=== PATIENT | male | born 1965 | race Caucasian/White ===

== ENCOUNTER 2018-05-24 02:15 | Emergency (ER) | payer SELFPAY ==
[2018-05-24] MEDS ORDERED: Ketorolac Tromethamine 30 MG/ML VIAL ONE (03:20)
--- NOTE | 2018-05-24 08:05 | RAD ---
RADIOGRAPH LEFT FOREARM 2 VIEWS: Date: 05/24/18 HISTORY: 53-year-old male with traumatic forearm pain due to fall. FINDINGS: There is no fracture or any other osseous abnormality involving the radius and ulna. IMPRESSION: Normal. POS: [facility]
--- NOTE | 2018-05-24 08:09 | RAD ---
RADIOGRAPH LEFT ELBOW 4 VIEWS: Date: 05/24/18 HISTORY: 53-year-old male with acute, traumatic left elbow pain after fall. FINDINGS: There is no dislocation. No displaced fracture is identified. On the AP view, there is a vertically o riented linear lucency at the lateral periphery of the head of the radius. The lateral view is subopt imally positioned such that it is difficult to evaluate for displaced fat pad. IMPRESSION: 1. Linear lucency at the lateral edge of the radial head, visible on only one of the views. This cou ld either represent a trabecular marking or a nondisplaced fracture. 2. Recommend follow-up radiograph of the elbow in 5-10 days. POS: [facility]
== END 2018-05-24 03:52 | disposition home or self-care (01) ==
LOC: ERS 02:15
DX: S50.02XA Contusion of left elbow, initial encounter (principal); J45.909 Unspecified asthma, uncomplicated; Z79.51 Long term (current) use of inhaled steroids; W10.9XXA Fall (on) (from) unspecified stairs and steps, initial encounter
CPT/HCPCS: 29105; 96372; J1885

== ENCOUNTER 2019-07-08 14:23 | Emergency (ER) | payer SELFPAY ==
[2019-07-08] MEDS ORDERED: Albuterol Sulfate 2.5 mg/0.5 ml Neb ONE ×2 (14:31→14:34)
[2019-07-08] MEDS ORDERED: Albuterol Sulfate 2.5 mg/3 ml Neb ONE ×2 (14:31)
[2019-07-08] MEDS ORDERED: methylPREDNISolone Sod Succ/PF 125 MG/2 ML VIAL ONE (14:43)
--- NOTE | 2019-07-08 14:59 | RAD ---
EXAM: Single view of the chest HISTORY: Dyspnea COMPARISON: 04/18/2013 FINDINGS: Single view of the chest shows a normal sized cardiomediastinal silhouette. There is no mirna dence of consolidation, mass, or pleural effusion. The bones are unremarkable. IMPRESSION: No evidence of acute cardiopulmonary disease
[2019-07-08 15:09] LABS: #Basophils 0.1 thou/uL (0.0-0.2); #Eosinphils 0.6 thou/uL (0.0-0.7); #Lymphocytes 1.8 thou/uL (1.20-3.40); #Monocytes 0.5 thou/uL (0.11-0.59); #Neutrophils 3.6 thou/uL (1.40-6.50); %Basophils 1.3 % (0.0-1.0); %Eosinophils 8.5 % (0.0-10.0); %Lymphocytes 27.8 % (21.0-51.0); %Monocytes 7.5 % (0.0-10.0); %Neutrophils 54.9 % (42.0-75.0); Hemoglobin 15.8 g/dL (14.0-18.0); Mean Corpuscular HGB CONC 32.2 g/dL (32.0-36.0); Mean Corpuscular Hemoglobin 30.6 pg (27.0-31.0); Mean Platelet Volume 7.9 fL (7.4-10.4); Platelet Count 258 thou/uL (130-400); RBC Distribution Width 12.1 % (11.5-14.5); Red Blood Cell (RBC) Count 5.17 mill/uL (4.70-6.10); White Blood Cell (WBC) Count 6.6 thou/uL (4.8-10.8)
[2019-07-08] MEDS ORDERED: Magnesium 2 GM/50 ML BAG (IN WATER) ONE (15:14)
[2019-07-08 15:31] LABS: ALT (SGPT) 18 U/L (8-55); AST (SGOT) 18 U/L (5-34); Albumin 4.2 g/dL (3.5-5.0); Alkaline Phosphatase 70 U/L (40-110); Anion Gap 11 mmol/L (10-20); BUN (Urea Nitrogen) 23 mg/dL (8.4-25.7); Bilirubin, Total 0.7 mg/dL (0.2-1.2); Calc. Creatinine Clearance 0 mL/min (70-130); Carbon Dioxide 25 mmol/L (22-29); Chloride 107 mmol/L (98-107); Estimated GFR-MDRD 67; Globulin 2.9 g/dL (2.4-3.5); Glucose 85 mg/dL (70-105); Potassium 3.9 mmol/L (3.5-5.1); Protein, Total 7.1 g/dL (6.0-8.3); Sodium 139 mmol/L (136-145)
== END 2019-07-08 16:55 | disposition home or self-care (01) ==
LOC: ERS 14:23
DX: J45.901 Unspecified asthma with (acute) exacerbation (principal)
CPT/HCPCS: 71045; 80053; 84484; 85025; 94640; 94644; 96365; 96375; J2930; J3475; J7611; J7620

== ENCOUNTER 2020-07-06 03:36 | Inpatient (IN) | payer SELFPAY ==
[2020-07-06] MEDS ORDERED: Fentanyl 100 MCG/2 ML VIAL ONE (03:48)
[2020-07-06] MEDS ORDERED: Midazolam HCl 5 mg/ml Vial ONE (03:48)
[2020-07-06] MEDS ORDERED: Albuterol Sulfate 2.5 mg/3 ml Neb ONE ×4 (03:51→05:13)
[2020-07-06] MEDS ORDERED: Fentanyl BOLUS 250 ML IVPB PRN (04:00)
[2020-07-06] MEDS ORDERED: Norepinephrine 8 MG/0.9% NS 250 ML ONE (04:02)
[2020-07-06 04:26] LABS: #Basophils 0.1 thou/uL (0.0-0.2); #Eosinphils 0.2 thou/uL (0.0-0.7); #Lymphocytes 4.3 thou/uL (1.20-3.40); #Monocytes 0.6 thou/uL (0.11-0.59); #Neutrophils 3.4 thou/uL (1.40-6.50); %Basophils 1.7 % (0.0-1.0); %Eosinophils 2.7 % (0.0-10.0); %Lymphocytes 49.7 % (21.0-51.0); %Monocytes 6.4 % (0.0-10.0); %Neutrophils 39.6 % (42.0-75.0); Hemoglobin 13.6 g/dL (14.0-18.0); Mean Corpuscular Hemoglobin 32.8 pg (27.0-31.0); Mean Platelet Volume 7.8 fL (7.4-10.4); Platelet Count 209 thou/uL (130-400); RBC Distribution Width 11.8 % (11.5-14.5); Red Blood Cell (RBC) Count 4.15 mill/uL (4.70-6.10); White Blood Cell (WBC) Count 8.6 thou/uL (4.8-10.8)
[2020-07-06] MEDS ORDERED: methylPREDNISolone Sod Succ/PF 125 MG/2 ML VIAL ONE (04:26)
[2020-07-06] MEDS ORDERED: Magnesium 2 GM/50 ML BAG (IN WATER) ONE (04:26)
[2020-07-06 04:35] LABS: Anion Gap 25 mmol/L (10-20); BUN (Urea Nitrogen) 22 mg/dL (8.4-25.7); CK (CPK) 435 U/L (30-200); Calc. Creatinine Clearance 0 mL/min (70-130); Carbon Dioxide 20 mmol/L (22-29); Chloride 103 mmol/L (98-107); Glucose 309 mg/dL (70-105); Potassium 3.8 mmol/L (3.5-5.1); Sodium 144 mmol/L (136-145)
[2020-07-06] MEDS ORDERED: Vancomycin 1 GM/200 ML BAG ONE (04:41)
[2020-07-06 04:45] LABS: Bacteria/HPF None Seen HPF (None Seen); Bilirubin Negative (Negative); Blood, Urine Trace (Negative); Clarity Turbid (Clear); Glucose, Urine (Dipstick) Normal (Negative); Ketone, Urine Negative (Negative); Leukocyte Negative Leu/uL (Negative); Mucous/LPF 1+ LPF (<2+); Nitrite Negative (Negative); Protein, Urine (Dipstick) 50 mg/dL (Neg-Trace); Specific Gravity, Urine 1.016 (1.002-1.036); Sperm/HPF 4+ HPF (None Seen); Squamous Epithelial None Seen HPF (0-3); Urobilinogen Normal mg/dL (Less than 2); WBC/HPF None Seen HPF (0-3); pH, Urine 6.5 (5.0-9.0)
[2020-07-06 04:57] LABS: Amphetamine Detected (NotDetected); Barbiturates Screen Not Detected (NotDetected); Benzodiazepine Screen Not Detected (NotDetected); Cocaine Metabolite Screen Not Detected (NotDetected); Medtox Control Line Valid? VALID (VALID); Medtox Reader # READER 4; Methadone Not Detected (NotDetected); Methamphetamine Detected (NotDetected); Opiate Screen Not Detected (NotDetected); Oxycodone Screen Not Detected (NotDetected); Phencyclidine (PCP) Not Detected (NotDetected); THC/Cannabinoid Screen Not Detected (NotDetected); Tricyclic Screen Not Detected (NotDetected)
--- NOTE | 2020-07-06 05:06 | PDOC.FPRHP ---
- History of Present Illness Chief Complaint: SOB and s/p CPR History of Present Illness: History provided by patient's spouse and ER attending. states that patient woke her up this AM c/o SOB, this was after he had done 5 albuterol treatments. She called EMS and when they arrived he was tripoding and then promptly became unresponsive. He was intubated in the field and was in PEA no CPR was started. He had 5 doses of epi and 1 dose of bicarb. Upon arrival to ER, CPR was continued, patient was found to be in v. fib and was shocked once and came back. Bilateral chest tubes were placed. CXR was obtained. Ancef and vancomycin were given for LA of 13.3. Initially he was hypertensive, however, he became hypotens peter and levophed was started. He apparently had purposeful movements of his arms. Per , patient's asthma has never been this severe. He was diagnosed with asthma when he was 42 y/o. No known exposures to COVID 19. ED Course: levophed ancef vancomycin fentanyl mg and steroids - Allergies/Adverse Reactions Allergies Allergy/AdvReac Type Severity Reaction Status Date / Time No Known Allergies Allergy Verified 06/09/13 13:57 - Home Medications Medication Instructions Recorded Confirmed Type Albuterol Sulfate [Ventolin HFA] 2 puff INH Q6HR PRN #0 inh 06/09/13 Rx No Known 06/09/13 06/09/13 History predniSONE [Robin] 5 mg PO ASDIR #21 tablet 06/09/13 Rx - History PMHx: -asthma PSHx: -none FHx: -unknown Social: -no TAD per - Review of Systems ROS unobtainable: due to endotracheal tube - Vital signs BP: 147/92, MAP: 110, Pulse: 127, Resp: 28, Temp: 95.4 (Criticore Temp), O2 sat: 98 on (Ventilator), Time: 07/06/2020 04:40. BP: 165/108, Pulse: 124, Resp: 24, O2 sat: 94 on (Ventilator), Time: 07/06/2020 04:46. - Physical Exam Constitutional: NAD HEENT: normocephalic and atraumatic, other (pupils reactive) Neck: supple, trachea midline Heart: no murmurs/rubs/gallops, other (tachycardic) Lungs: no rales/rhonchi, no wheezing Abdomen: soft, non-tender, bowel sounds present, no masses/distention Musculoskeletal: other (bl chest tube present) Skin: no rash/lesions Heme/Lymphatic: no unusual bruising or bleeding, no purpura, no petechia FMR H&P: Results - Labs Result Diagrams: 07/07/20 03:32 07/07/20 12:35 Lab results: WBC 8.6 thou/uL (4.8-10.8) 07/06/20 03:48 Hgb 13.6 g/dL (14.0-18.0) L 07/06/20 03:48 Hct 42.4 % (42.0-52.0) 07/06/20 03:48 MCV 102.0 fL (78.0-98.0) H 07/06/20 03:48 Plt Count 209 thou/uL (130-400) 07/06/20 03:48 Neutrophils % 39.6 % (42.0-75.0) L 07/06/20 03:48 Sodium 144 mmol/L (136-145) 07/06/20 03:48 Potassium 3.8 mmol/L (3.5-5.1) 07/06/20 03:48 Chloride 103 mmol/L (98-107) 07/06/20 03:48 Carbon Dioxide 20 mmol/L (22-29) L 07/06/20 03:48 BUN 22 mg/dL (8.4-25.7) 07/06/20 03:48 Creatinine 1.66 mg/dL (0.7-1.3) H 07/06/20 03:48 Glucose 309 mg/dL (70-105) H 07/06/20 03:48 Lactic Acid 13.3 mmol/L (0.5-2.2) H* 07/06/20 03:48 Calcium 8.0 mg/dL (7.8-10.44) 07/06/20 03:48 Creatine Kinase 435 U/L (30-200) H 07/06/20 03:48 Urine Ketones Negative mg/dL (Negative) 07/06/20 04:30 Urine Blood Trace (Negative) A 07/06/20 04:30 Urine Nitrite Negative (Negative) 07/06/20 04:30 Ur Leukocyte Esterase Negative Sherri/uL (Negative) 07/06/20 04:30 Urine RBC 7-10 HPF (0-3) A 07/06/20 04:30 Urine WBC None Seen HPF (0-3) 07/06/20 04:30 Ur Squamous Epith Cells None Seen HPF (0-3) 07/06/20 04:30 Urine Bacteria None Seen HPF (None Seen) 07/06/20 04:30 - Radiology Interpretation Chest x-ray Status: image reviewed by me, pending (pending report: no infiltrate seen) FMR H&P: A/P - Plan Acute Hypoxic Respiratory Failure 2/2 Asthma Exacerbation -s/p CPR for total of 25 mins, 5 doses of epi and 1 of bicarb -currently sedated and intubated, PS 100, PEEP 5, TV 400 -ABG showed pH 7.04, pCO2 79 -trop 0.013, CK 435 -asthma exacerbation txt with steroids and nebs -cooling protocol as needed -procal ordered, trend LA, do not see need to continue with abx for now -daily CXRs -CT chest ordered pending -pulmonary consulted -neg COVID and flu HENRIQUE -Telephone Service Representative 1.66 -LR 125ml/HR Lactic acidosis -pH 7.04, CO2 79 -s/p 1 dose bicarb -LA 13.3, will trend as above Polysubstance abuse -UDS positive for meth and amphetamines CODE: FULL VTE: Lovenox PCP: CC : Carmen Dispo: admitted to CCU. on ventilator. not currently on levophed. cooling protocol to be initiated as needed. FMR H&P: Upper Level - Plan Date/Time: 07/06/20 [address] p[address]3, have evaluated this patient and agree with findings/plan as outlined by events intern resident. Pertinent changes/additions are listed here. 55-year-old male with past medical history of asthma presents via EMS in active code. stated that he woke her up after 5 nebulizations of albuterol stating he cannot breathe and EMS was called. He became apneic and went into ventricular tachycardia so chest compressions were started. He had a total of 5 mg of epinephrine and 1 amp bicarb and on arrival to the emergency room he was in ventricular fibrillation. On defibrillation he achieved ROSC. He had bilateral chest tubes putting and a left subclavian central catheter. On presentation systolic blood pressure was in the 190s which decreased to 45 and Levophed was started, this Levophed was quickly weaned however On exam patient is in sinus tachycardia and blood pressures are stable off of Levophed, he is sedated letter fentanyl, bilateral chest tubes in place, diffuse bilateral crackles on inspiration, heart is tachycardiac with no murmur Assessment and plan Ventricular tachycardia and ventricular fibrillation status post ROSC Patient has weaned Levophed quickly and appears to be hemodynamically stable at this time. He is currently hypothermic but will consider cooling protocol if he is still stable after transfer to the floor. Hypoxic respiratory failure secondary to asthma exacerbation Patient is currently intubated, will start duonebs and steroids, consult pulmonology. Fentanyl for sedation Bilateral Chest Tubes stable in place, will get daily CXR. f/u pulm recs HENRIQUE vs. CKD likely HENRIQUE 2/2 cardiac arrest, will continue to monitor hypothermia Likely 2/2 cardiac arrest, pt would be candidate for hypothermia protocol so will monitor temps. Bear hugger as needed. Lactic acidosis LA 13.5 on admission, likely 2/2 cardiac arrest, will give fluids and trend Methamphetamine abuse denies use, UDS positive hematuria unknown etiology, will monitor kidney function and consider repeat CODE: FULL Access: L subclavian IVF: LR 125/hr DVT Ppx: lovenox PCP: JORGE dispo: inpt, expect > 2 midnights Addendum - Attending - Attending Attestation Date/Time: 07/07/201955 I personally evaluated the patient and discussed the management with Dr. Cosby at time of admission. I agree with the History, Examination, Assessment and Plan documented above with any addition or exceptions noted below.
[2020-07-06 05:12] LABS: Actual Bicarbonate (HCO3a) 20.7 mEq/L (22-28); Analyzer IN Cardio ER; Base Excess (BEa) -11.6 mEq/L (-2.0 to +3.0); Calcium, Ionized (arterial) 1.13 mmol/L (1.12-1.30); Carboxyhemoglobin (COHb) 0.1 gm% (0.0-3.0); Hemoglobin (Hb) 15.3 g/dL (14.0-18.0); O2 Tension (PaO2), arterial 85.1 mmHg (80.0-100.0); Potassium - ABG Lab 4.14 mmol/L (3.70-5.30)
[2020-07-06 05:15] LABS: pH, Arterial 7.04 (7.35-7.45)
[2020-07-06 05:16] LABS: Puncture Site LBA
[2020-07-06 05:23] LABS: Acetaminophen Less than 6.0 mcg/mL (10.0-30.0); Alcohol Less than 10 mg/dL (Less than 10); Salicylate Less than 8.0 mg/dL (15.0-30.0)
[2020-07-06] MEDS ORDERED: Propofol 1,000 MG/100 ML VIAL IV ONE (05:24)
[2020-07-06 05:29] LABS: SARS-CoV-2 NAA Rapid Test Not Detected (NotDetected)
[2020-07-06] MEDS ORDERED: fentaNYL Citrate/PF 2,000 MCG in Sodium Chloride 0.9% 60 ML IV PRN (05:46)
[2020-07-06] MEDS ORDERED: Ventilator Sedation Protocol 1 EACH FS ONE (05:46)
[2020-07-06] MEDS ORDERED: DISCONTINUE PREVIOUS NARCOTIC PAIN MEDICATIONS AND BENZODIAZEPINES FS SCH (06:15)
[2020-07-06] MEDS ORDERED: Morphine 2 MG/ML VIAL SLOW IVP PRN (06:15)
[2020-07-06] MEDS ORDERED: Propofol BOLUS 1,000 MG/100 ML VIAL IV PRN (06:15)
[2020-07-06] MEDS ORDERED: Bacteriostatic Water 30 ML VIAL FS PRN (06:15)
[2020-07-06] MEDS ORDERED: Ipratropium Bromide 2.5 ml Neb NEB SCH (06:30)
[2020-07-06 07:16] LABS: Lactic Acid 2.5 mmol/L (0.5-2.2)
[2020-07-06] MEDS: Lorazepam 2 MG/ML VIAL SLOW IVP PRN ×6 (07:33→17:34)
[2020-07-06] MEDS ORDERED: DO NOT USE PRE-EXISTING LYTE PROTOCOL FS SCH (08:00)
[2020-07-06] MEDS ORDERED: ALL FLUIDS SHOULD BE DEXTROSE FREE IF POSSIBLE FS SCH (08:00)
[2020-07-06] MEDS ORDERED: Vecuronium 10 MG VIAL ONE (08:00)
[2020-07-06] MEDS ORDERED: Midazolam HCl 5 mg/5 ml Vial SLOW IVP SCH (08:00)
--- NOTE | 2020-07-06 08:11 | RAD ---
CHEST 1 VIEW: INDICATION: History of CODE-3 alert, CPR in progress status post intubation. Woke up with difficulty breathing. COMPARISON: Prior exam dated 07/08/2019. FINDINGS: Costophrenic angles are excluded. There are bilateral chest tubes. There is a right-sided percutane ous thoracostomy dart. The patient is intubated with the ET tube at the thoracic inlet. Gastric cat heter projects toward the left hemidiaphragm and beyond the field of view. The visualized lungs are clear. No definite pneumothorax is evident. No acute osseous abnormality is noted. IMPRESSION: 1. No definite acute abnormality evident. 2. Intubation, gastric catheter placement, bilateral thoracostomy tube placements, and right-sided t horacostomy dart. POS:
--- NOTE | 2020-07-06 08:25 | RAD ---
Portable frontal chest radiograph: 07/06/2020 COMPARISON: 07/06/2020 HISTORY: Intubated patient, pneumothorax FINDINGS: Endotracheal tube, nasogastric tube, and left-sided vascular catheter in place. There is madrid bcutaneous emphysema within the chest wall bilaterally, right greater than left, increased in volume when compared to the prior chest radiograph. Bilateral chest tubes are present. There is a pneumothorax on the right with a lateral right upper lo be component measuring 1.5 cm in transverse dimension and an apical component measuring approximately 3.1 cm in craniocaudal dimension. No definite left-sided pneumothorax is seen although a small left pneumothorax is difficult to exclude on the basis of technique. Heart and mediastinal contours are stable as are the osseous structures. IMPRESSION: Lines and tubes as detailed above. Right pneumothorax and bilateral chest wall subcutaneo us emphysema. Of note, when compared to CT angiogram of the chest performed 07/06/2020 at 6:15 AM, the right-sided p neumothorax appears stable, the left pneumothorax is not discretely visualized, and the subcutaneous gas within the chest wall appears similar bilaterally.
[2020-07-06] MEDS: Lactated Ringer's 1,000 ML IV SCH ×3 (08:26→23:22)
[2020-07-06] MEDS: Enoxaparin Sodium 40 MG/0.4 ML SYRINGE SC SCH (08:34)
[2020-07-06 08:35] LABS: PTT 29.7 sec (22.9-36.1); Prothrombin Time 13.3 sec (12.0-14.7)
[2020-07-06] MEDS: methylPREDNISolone Sod Succ 40 MG VIAL IVP SCH ×3 (08:35→23:22)
[2020-07-06 08:43] LABS: Hemoglobin 16.5 g/dL (14.0-18.0); Lactic Acid 3.5 mmol/L (0.5-2.2); Mean Corpuscular HGB CONC 32.1 g/dL (32.0-36.0); Mean Corpuscular Hemoglobin 30.9 pg (27.0-31.0); Mean Corpuscular Volume 96.1 fL (78.0-98.0); Mean Platelet Volume 7.4 fL (7.4-10.4); Platelet Count 356 thou/uL (130-400); RBC Distribution Width 11.8 % (11.5-14.5); Red Blood Cell (RBC) Count 5.33 mill/uL (4.70-6.10); White Blood Cell (WBC) Count 22.3 thou/uL (4.8-10.8)
--- NOTE | 2020-07-06 08:43 | RAD ---
CHEST 1 VIEW: INDICATION: History of central line placement. COMPARISON: Prior exam dated 07/06/2020 at 4:03 a.m. FINDINGS/IMPRESSION: The prior right chest port has been removed. Thoracostomy tubes are unchanged. There is a new left subclavian central venous catheter. No pneumothorax is evident. Pacer pads overlie the chest wall. Heart size is normal. The ET tube is unchanged. Gastric catheter projects below the left hemidiaph ragm and beyond the field of view. Costophrenic angles are excluded. POS: [facility]
[2020-07-06] MEDS: Propofol 1,000 MG/100 ML VIAL IV PRN ×4 (08:47→23:21)
[2020-07-06 08:48] LABS: Anion Gap 18 mmol/L (10-20); BUN (Urea Nitrogen) 20 mg/dL (8.4-25.7); Calc. Creatinine Clearance 0 mL/min (70-130); Calcium 8.3 mg/dL (7.8-10.44); Carbon Dioxide 23 mmol/L (22-29); Chloride 101 mmol/L (98-107); Glucose 222 mg/dL (70-105); Magnesium 2.2 mg/dL (1.6-2.6); Phosphorus 2.2 mg/dL (2.3-4.7); Sodium 139 mmol/L (136-145)
[2020-07-06] MEDS ORDERED: methylPREDNISolone Sod Succ 40 MG VIAL IVP SCH (09:00)
[2020-07-06 09:05] LABS: Actual Bicarbonate (HCO3a) 24.1 mEq/L (22-28); Base Excess (BEa) -2.1 mEq/L (-2.0 to +3.0); CO2 Tension 46.3 mmHg (35.0-45.0); Calcium, Ionized (arterial) 1.09 mmol/L (1.12-1.30); Carboxyhemoglobin (COHb) 0.4 gm% (0.0-3.0); Hemoglobin (Hb) 17.4 g/dL (14.0-18.0); O2 Tension (PaO2), arterial 108.2 mmHg (80.0-100.0); Potassium - ABG Lab 2.91 mmol/L (3.70-5.30); pH, Arterial 7.34 (7.35-7.45)
[2020-07-06 09:06] LABS: ALV-art Gradient 190.425 mmHg (0-20); Puncture Site LRA
[2020-07-06 09:07] LABS: Troponin I 0.644 ng/mL (< 0.028)
[2020-07-06 09:28] LABS: Band 11 % (5-11); Eosinophils 1 % (0-10); Lymphocytes 8 % (21-51); MDiff Complete? YES; Monocytes 5 % (0-10); Neutrophil 75 % (42-75); Platelet Morphology Comment Appears Adequate; RBC Morphology Normal
--- NOTE | 2020-07-06 09:35 | CT ---
CTA OF THE CHEST UTILIZING IV CONTRAST AND PE PROTOCL AND REFORMATTED IMAGING: INDICATION: History of CPR in progress with asthma exacerbation. COMPARISON: No CT comparisons are available. FINDINGS: No central or segmental pulmonary embolus is evident. There is moderate right and small to moderate left-sided pneumothoraces. There are bilateral thoracostomy tubes. The patient is intubated with ga stric catheter placement. There is extensive subcutaneous emphysema. There are patchy airspace opaci ties within both upper lobes as well as within the medial right middle lobe which is nonspecific. Th e opacities are suspicious for focal areas of contusion. They could also be related to aspiration if the patient was in a Trendelenburg-type position upon intubation. No definite acute osseous abnorma lity is evident. There is mild scattered degenerative change. Visualized upper abdomen demonstrates a calcified granuloma within the spleen. There is some wall thickening and fluid surrounding the ga llbladder which is nonspecific. There is a nonobstructing calculus within the inferior pole of the r ight kidney measuring approximately 3 mm. A small hypodensity is seen within the left mid kidney marietta picious for a small cyst. There is a left subclavian central venous catheter in place. IMPRESSION: 1. Moderate right and small to moderate left pneumothorax with bilateral thoracostomy tubes. There is extensive subcutaneous emphysema. 2. No central or segmental pulmonary embolus. 3. Opacities within the upper lobes may reflect contusions from attempts for chest wall darting or p ossibly from thoracostomy placement. They also could be related to aspiration pneumonitis from intub ation if the patient is within a Trendelenburg position. 4. Nonspecific gallbladder wall thickening and pericholecystic fluid. Right upper quadrant ultrasou nd is recommended for additional evaluation. 5. Left nephrolithiasis and small suspected left renal cyst. POS: [facility]
[2020-07-06] MEDS: Vecuronium 10 MG VIAL IV PRN ×8 (09:52→23:22)
[2020-07-06] MEDS: cefTRIAXone\\ROCEPHIN 1 GM in Sodium Chloride 0.9% 100 ML IVPB SCH (09:59)
[2020-07-06] MEDS ORDERED: Iopamidol-370 76% 500 ML 1 ML ONE (10:23)
[2020-07-06] MEDS ORDERED: Sodium Chloride 0.9% (PF) 10 ML VIAL FS PRN (10:45)
--- NOTE | 2020-07-06 11:43 | CON ---
DATE OF CONSULTATION: 07/06/2020 HISTORY OF PRESENT ILLNESS: Maryann is a 55-year-old gentleman, intubated in the ICU, on the vent with 2 bilateral chest tubes. History is obtained from his , who is at the bedside. He has longstanding history of asthma, nonsmoker, but having issues with difficulty breathing for several days this morning at 03:30 a.m. in the morning, developed another attack, unresponsive to usual medication. EMS was called in. Apparently, he had no pulse, is apneic. #8 tube was placed in. He received 5 doses of epi and received an amp of bicarb, came to the ER here in cardiac arrest. CPR was done. Somewhere down the line he had 2 chest tubes placed in. I have reviewed several of his x-rays including a CT of the chest. I did not see any pneumothorax. says he is very healthy. He is a senior landscape architect. PAST MEDICAL HISTORY: No history of diabetes, hypertension. Chronic asthma. PREVIOUS SURGERIES: None. CHRONIC MEDICATION: Albuterol inhaler. REVIEW OF SYSTEMS: Otherwise, unobtainable. Because of his CPR, he is on a cooling protocol at this stage. PHYSICAL EXAMINATION: VITAL SIGNS: Temperature 97, blood pressure 180/120, pulse 102, sats 100%. CHEST: No wheezing. No crackles. CARDIAC: Normal S1, S2. No gallops. ABDOMEN: No masses. DIAGNOSTIC DATA: X-ray is clear. PO2 is 85, pCO2 , pH 7.0, rate of 40-50%, 400 tidal volume, PEEP of 5. He had methamphetamines, amphetamines in his toxicology screen. Ellis test negative. Respiratory pneumonia, presumed bilateral pneumothorax, bilateral chest tubes, substance abuse. Because of prolonged CPR, he is on a cooling protocol for 24 hours, empiric antibiotics, steroids, supportive care. We will wean when stable. This is a 45-minute critical care time. Job ID: [id number]
[2020-07-06 12:28] LABS: #Basophils 0.1 thou/uL (0.0-0.2); #Lymphocytes 0.4 thou/uL (1.20-3.40); #Monocytes 0.8 thou/uL (0.11-0.59); #Neutrophils 22.5 thou/uL (1.40-6.50); %Basophils 0.5 % (0.0-1.0); %Eosinophils 0.1 % (0.0-10.0); %Lymphocytes 1.8 % (21.0-51.0); %Monocytes 3.3 % (0.0-10.0); %Neutrophils 94.3 % (42.0-75.0); Hemoglobin 16.6 g/dL (14.0-18.0); Mean Corpuscular HGB CONC 32.4 g/dL (32.0-36.0); Mean Corpuscular Hemoglobin 31.6 pg (27.0-31.0); Mean Corpuscular Volume 97.3 fL (78.0-98.0); Mean Platelet Volume 7.3 fL (7.4-10.4); Platelet Count 316 thou/uL (130-400); RBC Distribution Width 11.8 % (11.5-14.5); Red Blood Cell (RBC) Count 5.25 mill/uL (4.70-6.10); White Blood Cell (WBC) Count 23.9 thou/uL (4.8-10.8)
[2020-07-06 12:41] LABS: PTT 33.7 sec (22.9-36.1)
[2020-07-06 13:42] LABS: Anion Gap 21 mmol/L (10-20); Calc. Creatinine Clearance 76 mL/min (70-130); Calcium 8.4 mg/dL (7.8-10.44); Carbon Dioxide 18 mmol/L (22-29); Chloride 101 mmol/L (98-107); Magnesium 2.2 mg/dL (1.6-2.6); Potassium 3.3 mmol/L (3.5-5.1); Sodium 137 mmol/L (136-145)
[2020-07-06 13:45] LABS: CKMB 38.3 ng/mL (0-6.6)
[2020-07-06] MEDS ORDERED: Fentanyl CADD 100 ML ONE (13:45)
[2020-07-06] MEDS: Fentanyl CADD 100 ML IV SCH (13:58)
[2020-07-06 14:00] LABS: BUN (Urea Nitrogen) 22 mg/dL (8.4-25.7)
[2020-07-06 14:02] LABS: Glucose 212 mg/dL (70-105)
[2020-07-06 18:15] LABS: #Lymphocytes 0.5 thou/uL (1.20-3.40); #Monocytes 0.7 thou/uL (0.11-0.59); %Eosinophils 0.1 % (0.0-10.0); %Lymphocytes 2.6 % (21.0-51.0); %Monocytes 3.6 % (0.0-10.0); %Neutrophils 93.8 % (42.0-75.0); Hemoglobin 15.9 g/dL (14.0-18.0); Mean Corpuscular HGB CONC 32.9 g/dL (32.0-36.0); Mean Corpuscular Volume 97.1 fL (78.0-98.0); Mean Platelet Volume 7.4 fL (7.4-10.4); Platelet Count 265 thou/uL (130-400); RBC Distribution Width 11.8 % (11.5-14.5); Red Blood Cell (RBC) Count 4.97 mill/uL (4.70-6.10); White Blood Cell (WBC) Count 19.2 thou/uL (4.8-10.8)
[2020-07-06 18:21] LABS: PTT 33.8 sec (22.9-36.1); Prothrombin Time 13.2 sec (12.0-14.7)
[2020-07-06 18:47] LABS: Anion Gap 18 mmol/L (10-20); BUN (Urea Nitrogen) 22 mg/dL (8.4-25.7); Calc. Creatinine Clearance 80 mL/min (70-130); Calcium 8.6 mg/dL (7.8-10.44); Carbon Dioxide 23 mmol/L (22-29); Chloride 101 mmol/L (98-107); Glucose 167 mg/dL (70-105); Magnesium 1.9 mg/dL (1.6-2.6); Phosphorus 3.1 mg/dL (2.3-4.7); Potassium 3.2 mmol/L (3.5-5.1); Sodium 139 mmol/L (136-145)
[2020-07-06] MEDS: Budesonide 0.5 MG/2 ML NEB NEB SCH (18:50)
[2020-07-06 19:12] LABS: CKMB 38.1 ng/mL (0-6.6); Critical Call CKMB RESULT DECREASING
[2020-07-06] MEDS ORDERED: Potassium Chloride 40 MEQ in Premix Bag 1 BAG IVPB SCH (19:15)
[2020-07-06] MEDS: Pantoprazole 40 MG VIAL IVP SCH (20:14)
[2020-07-07 00:01] LABS: PTT 33.2 sec (22.9-36.1)
[2020-07-07] MEDS ORDERED: Fentanyl CADD 100 ML ONE (00:08)
[2020-07-07] MEDS: Fentanyl CADD 100 ML IV SCH (00:10)
[2020-07-07 00:12] LABS: Band 6 % (5-11); Hemoglobin 15.6 g/dL (14.0-18.0); Lymphocytes 9 % (21-51); MDiff Complete? YES; Mean Corpuscular HGB CONC 33.2 g/dL (32.0-36.0); Mean Corpuscular Hemoglobin 31.7 pg (27.0-31.0); Mean Corpuscular Volume 95.6 fL (78.0-98.0); Mean Platelet Volume 7.2 fL (7.4-10.4); Monocytes 13 % (0-10); Neutrophil 72 % (42-75); Platelet Count 267 thou/uL (130-400); Platelet Morphology Comment Appears Adequate; RBC Distribution Width 11.9 % (11.5-14.5); RBC Morphology Normal; White Blood Cell (WBC) Count 24.2 thou/uL (4.8-10.8)
[2020-07-07 00:17] LABS: Anion Gap 18 mmol/L (10-20); BUN (Urea Nitrogen) 22 mg/dL (8.4-25.7); Calc. Creatinine Clearance 96 mL/min (70-130); Calcium 8.4 mg/dL (7.8-10.44); Carbon Dioxide 24 mmol/L (22-29); Chloride 101 mmol/L (98-107); Glucose 150 mg/dL (70-105); Magnesium 1.8 mg/dL (1.6-2.6); Phosphorus 4.1 mg/dL (2.3-4.7); Potassium 3.7 mmol/L (3.5-5.1); Sodium 139 mmol/L (136-145)
[2020-07-07 00:19] LABS: Critical Call Chem Troponin I RESULT DECREASING
[2020-07-07 00:39] LABS: CKMB 41.9 ng/mL (0-6.6)
[2020-07-07] MEDS: Vecuronium 10 MG VIAL IV PRN ×2 (01:50→03:46)
[2020-07-07 04:29] LABS: ALT (SGPT) 802 U/L (8-55); AST (SGOT) 418 U/L (5-34); Albumin 3.6 g/dL (3.5-5.0); Alkaline Phosphatase 71 U/L (40-110); Anion Gap 14 mmol/L (10-20); BUN (Urea Nitrogen) 28 mg/dL (8.4-25.7); Bilirubin, Total 0.4 mg/dL (0.2-1.2); Calc. Creatinine Clearance 120 mL/min (70-130); Calcium 8.7 mg/dL (7.8-10.44); Carbon Dioxide 27 mmol/L (22-29); Chloride 101 mmol/L (98-107); Globulin 2.9 g/dL (2.4-3.5); Glucose 142 mg/dL (70-105); Potassium 3.8 mmol/L (3.5-5.1); Protein, Total 6.5 g/dL (6.0-8.3); Sodium 138 mmol/L (136-145)
[2020-07-07 04:40] LABS: Band 11 % (5-11); Hemoglobin 15.2 g/dL (14.0-18.0); MDiff Complete? YES; Mean Corpuscular HGB CONC 33.8 g/dL (32.0-36.0); Mean Corpuscular Hemoglobin 32.2 pg (27.0-31.0); Mean Corpuscular Volume 95.4 fL (78.0-98.0); Mean Platelet Volume 7.7 fL (7.4-10.4); Monocytes 10 % (0-10); Neutrophil 76 % (42-75); Platelet Count 278 thou/uL (130-400); Platelet Morphology Comment Appears Adequate; RBC Distribution Width 11.9 % (11.5-14.5); RBC Morphology Normal; Reactive Lymphocytes 3 % (0-10); Red Blood Cell (RBC) Count 4.71 mill/uL (4.70-6.10); White Blood Cell (WBC) Count 26.5 thou/uL (4.8-10.8)
[2020-07-07] MEDS ORDERED: Sodium Chloride 0.9% 500 ML IVPB SCH (04:45)
[2020-07-07] MEDS: methylPREDNISolone Sod Succ 40 MG VIAL IVP SCH ×3 (05:32→19:28)
[2020-07-07] MEDS: Propofol 1,000 MG/100 ML VIAL IV PRN (06:21)
--- NOTE | 2020-07-07 07:04 | PDOC.FM ---
- Subjective Subjective: Pt is intubated and sedated. no acute events overnight. - Objective MAR Reviewed: Yes Vital Signs & Weight: Vital Signs (12 hours) Pulse Resp Pulse Ox 07/07/20 06:00 20 07/07/20 04:00 20 07/07/20 02:17 87 20 96 07/07/20 02:16 87 07/07/20 02:00 20 07/07/20 00:23 96 07/07/20 00:00 20 07/06/20 22:00 20 07/06/20 21:53 98 20 96 07/06/20 20:00 20 Weight Admit Weight 82.554 kg Weight 82.6 kg Most Recent Monitor Data Heart Rate from ECG 91 NIBP 125/83 NIBP BP-Mean 97 Respiration from ECG 6 SpO2 99 I&O: 07/06/20 07/07/20 07/08/20 06:59 06:59 06:59 Intake Total 2432 Output Total 3776 5887 Balance -8857 -9329 Result Diagrams: 07/07/20 03:32 07/07/20 03:32 Phys Exam - Physical Examination Constitutional: NAD HEENT: moist MMs Neck: supple Respiratory: clear to auscultation bilateral Cardiovascular: RRR, no significant murmur Gastrointestinal: soft, non-tender Musculoskeletal: pulses present sedated unable to assess Skin: no rash, normal turgor Dx/Plan (1) Acute respiratory failure with hypoxia Code(s): J96.01 - ACUTE RESPIRATORY FAILURE WITH HYPOXIA Status: Acute (2) Asthma Code(s): J45.909 - UNSPECIFIED ASTHMA, UNCOMPLICATED Status: Acute (3) HENRIQUE (acute kidney injury) Code(s): N17.9 - ACUTE KIDNEY FAILURE, UNSPECIFIED Status: Acute (4) Lactic acidosis Code(s): E87.2 - ACIDOSIS Status: Acute (5) Substance abuse Code(s): F19.10 - OTHER PSYCHOACTIVE SUBSTANCE ABUSE, UNCOMPLICATED Status: Acute - Plan Plan: Pt is a 55 yo M with no significant pmh who presents post ROSC. 1. Acute Hypoxic Respiratory Failure 2/2 Asthma Exacerbation -s/p CPR for total of 25 mins, 5 doses of epi and 1 of bicarb * Presumed PNA, will treat with Ceftriaxone empirically -Sedated and intubated, SIMV @ 35% FIO2 -ABG showed pH 7.04, pCO2 79 -Trop 0.013 > 0.644 > 0.9 > 1.227 > 0.907, CK 435 -Asthma exacerbation * txt with steroids and nebs -Cooling protocol as needed -procal ordered, trend LA, do not see need to continue with abx for now -daily CXRs -CT chest ordered pending -Pulmonary consulted, Dr. Chou, 07/06, appreciate recs. -neg COVID and flu 2. HENRIQUE, Resolved -Cr 1.66 > 0.83 -LR 125ml/HR 3. Lactic acidosis, Resolved -pH 7.04, CO2 79 > pH: 7.4, CO2: 41.3 -s/p 1 dose bicarb -LA 13.3 > 3 4. Polysubstance abuse -UDS positive for meth and amphetamines 5. Elevated Troponin Trop: 0.013 > 0.6 > 0.9 > 1.227 > 0.9 -Status post ROSC initially PEA, ST on arrival after 5 rounds of epi -Cardiology consulted CODE: FULL VTE: Lovenox PCP: CC : Carmen Dispo: ICU inpt. Will consult cardiology for recs since pt comes in post ROSC after PEA. Addendum - Attending - Attending Attestation Date/Time: 07/07/20 8400 I personally evaluated the patient and discussed the management with Dr. Lorenzo. I agree with the History, Examination, Assessment and Plan documented above with any addition or exceptions noted below. Patient critical but stable. Will begin rewarming process today. Here for ROSC s/p Cardiac arrest of unknown etiology, though suspect lung versus drug abuse given UDS results. Continue steroids, respiratory support, abx per Pulm. Will consult cardiology as we cannot currently rule out cardiac etiology. WBC increased though suspect this is stress response, continue abx and monitor cultures. Family updated. Increase fluids to help with UOP, creatinine normal at this time, though should anticipate the potential for ATN.
[2020-07-07 07:11] LABS: Base Excess (BEa) 1.3 mEq/L (-2.0 to +3.0); CO2 Tension 41.3 mmHg (35.0-45.0); Calcium, Ionized (arterial) 1.12 mmol/L (1.12-1.30); Carboxyhemoglobin (COHb) 0.6 gm% (0.0-3.0); Hemoglobin (Hb) 15.2 g/dL (14.0-18.0); O2 Tension (PaO2), arterial 98.9 mmHg (80.0-100.0); Potassium - ABG Lab 3.81 mmol/L (3.70-5.30); pH, Arterial 7.42 (7.35-7.45)
[2020-07-07] MEDS: Lactated Ringer's 1,000 ML IV SCH ×3 (07:17→23:05)
[2020-07-07 07:19] LABS: ALV-art Gradient 99.025 mmHg (0-20); Puncture Site LRA
[2020-07-07] MEDS: Budesonide 0.5 MG/2 ML NEB NEB SCH ×2 (07:21→19:00)
--- NOTE | 2020-07-07 07:24 | EKG ---
Test Reason : Blood Pressure : / mmHG Vent. Rate : 102 BPM Atrial Rate : 102 BPM P-R Int : 158 ms QRS Dur : 094 ms QT Int : 386 ms P-R-T Axes : 087 076 084 degrees QTc Int : 503 ms Sinus tachycardia with frequent Premature ventricular complexes Septal infarct (cited on or before 06-JUL-2020) Nonspecific ST-T changes Abnormal ECG When compared with ECG of 06-JUL-2020 04:32, (Unconfirmed) Fusion complexes are no longer Present Premature ventricular complexes are now Present Nonspecific T wave abnormality, worse in Anterior leads Confirmed by DR. Loco KEY ([id number]) on 07/07/2020 7:24:09 AM Referred By: QUINCY Confirmed By:DR. Loco KEY
--- NOTE | 2020-07-07 08:11 | RAD ---
Chest AP view INDICATION: 55-year-old male with intubation COMPARISON: July 06, 2020 FINDINGS: Lungs: The lungs are clear Cardiac silhouette: The cardiomediastinal silhouette appears within normal limits. Pulmonary vasculature: Normal Pleural spaces: Right-sided pneumothorax has resolved. Bilateral thoracostomy tubes persist. Upper abdomen: No abnormality seen. Osseous structures: No acute osseous abnormality. Additional findings: Left subclavian central venous catheter is unchanged. Subcutaneous emphysema in volving the right chest wall is stable. ET tube and gastric catheter unchanged. IMPRESSION: 1. Interval resolution of the right-sided pneumothorax. Stable bilateral thoracostomy tubes. No acute cardiopulmonary abnormality. 2. Patient remains intubated with left subclavian central venous catheter and gastric catheter placem ent. Tube positioning is stable. 3. Stable right-sided subcutaneous emphysema.
[2020-07-07] MEDS: Enoxaparin Sodium 40 MG/0.4 ML SYRINGE SC SCH (08:31)
[2020-07-07] MEDS: cefTRIAXone\\ROCEPHIN 1 GM in Sodium Chloride 0.9% 100 ML IVPB SCH (08:32)
[2020-07-07 13:04] LABS: Anion Gap 12 mmol/L (10-20); BUN (Urea Nitrogen) 24 mg/dL (8.4-25.7); Calc. Creatinine Clearance 125 mL/min (70-130); Calcium 8.4 mg/dL (7.8-10.44); Carbon Dioxide 27 mmol/L (22-29); Chloride 101 mmol/L (98-107); Glucose 116 mg/dL (70-105); Potassium 4.2 mmol/L (3.5-5.1); Sodium 136 mmol/L (136-145)
[2020-07-07] MEDS: Acetaminophen 650 MG Suppository PR PRN ×2 (14:37→19:40)
[2020-07-07] MEDS: hydrALAZINE 20 MG/ML VIAL SLOW IVP PRN (14:40)
--- NOTE | 2020-07-07 15:10 | CON ---
DATE OF CONSULTATION: 07/07/2020 INDICATION FOR CONSULTATION: A 55-year-old gentleman who had respiratory cardiac arrest apparently and now still remains intubated, but was cooled with a cooling blanket and is now being re-warmed. He is somewhat agitated, but all the information was obtained from his daughter who was at the bedside. HISTORY OF PRESENT ILLNESS: This is an unfortunate 55-year-old gentleman who sometimes lives with the girlfriend, sometimes lives with his daughter, has apparently according to his daughter been using drugs since he was a teenager. He has habitual use of amphetamines and methamphetamines. He has hard time holding down a job, has had multiple different jobs, but does not keep the jobs due to his drug abuse. Apparently, he recently has been having some shortness of breath, was given some inhalers by the physician, and on date of the event, apparently he had been with the girlfriend and was having an argument. His son came over, but then left and later on the patient woke up saying that he was short of breath, but as I said, he had used the inhaler several times. He became more short of breath and I believe the girlfriend called 911. When the ambulance arrived, apparently he was apneic and had no pulse and CPR was initiated. He received medications for the resuscitation, epinephrine, bicarb, and apparently when he arrived in the emergency room, he was in a cardiac arrest and CPR was still in progress. He had had chest tubes placed due to pneumothorax and he apparently has some subcutaneous air, but at this time, he still remains with a chest tube in place, he is on the ventilator and is in intensive care unit. He is being taken off the sedatives and appears to be getting somewhat more arousable and seems to be somewhat agitated. Blood pressure is 188/119. Heart rate is 135, which shows a sinus tachycardia. His EKG on admission to the emergency room did not show any ST-segment elevations that would indicate myocardial infarction; however, he did have decreased R-wave in V1 and V3. He may have had septal MIs in the past due to his history of drug abuse. We will obtain an echocardiogram to evaluate his left ventricular systolic function. Also, his cardiac enzymes were elevated. I did notice his CK was actually 435 with an MB which went up to 41.9. His troponin-I also was slightly elevated, but would not be significantly elevated for having CPR, and having tachycardia associated with his methamphetamine use. His peak troponin-I that I see on record was 1.2, it has decreased down to 0.9, but with an elevated CK of 435 thus he also seems to have some muscle damage, which may also slightly increase the troponins. His daughter says he has never had a cardiac problem in the past, he has never complained of chest pain, he has had no cardiac evaluations in the past, and has had no complaints for shortness of breath other than recently what was thought to be possible asthma. He has had no edema and had no episodes of tachycardia or palpitations that she is aware of. He did not have any complaints of that. PAST MEDICAL HISTORY: Significant for the asthma and chronic drug use. No other history of significant surgeries or any other medical problems. His daughter says he has been actually very healthy. MEDICATIONS: The only medications that I see listed were, were the inhalers, which he think it was an albuterol inhaler. REVIEW OF SYSTEMS: Unobtainable since he is on the ventilator, but the daughter says he has no usual complaints. FAMILY HISTORY: Noncontributory. SOCIAL HISTORY: As noted above. He is unemployed for the last 6 to 8 months and has not been able to keep a job even before that due to his use of illegal drugs. ALLERGIES: THERE ARE NO KNOWN DRUG ALLERGIES. PHYSICAL EXAMINATION: GENERAL: Reveals a middle-aged gentleman, who is in no acute distress at this time. He is starting to wake up as the sedation is being withheld and seems to be somewhat agitated, but not fully awake yet. VITAL SIGNS: His blood pressure at this time is 186/119, heart rate is 135 with sinus tachycardia, O2 saturation 98%, respiratory rate about 27. HEENT: Exam was unremarkable. Carotid pulses are present. There were no bruits. There is no JVD. CHEST: Actually, I did not hear any rales, rhonchi, or wheezing. I cannot feel any significant subcutaneous air at this time. Chest tubes are in place. CARDIOVASCULAR: Reveals a tachycardia with no significant murmurs, heaves, thrills, bruits or rubs. ABDOMINAL: Soft, flat, and positive bowel sounds are present. EXTREMITIES: Showed no clubbing, cyanosis, or edema. Pedal pulses are present. NEUROLOGIC: I cannot determine this, but he does seem to be waking up a little bit. LABORATORY DATA: Show a WBC of 26.5, which may be due to demargination associated with stress. Hemoglobin 15.2, platelet count 276,000. Sodium was 136, potassium 4.2, BUN was 24, creatinine 0.8, bicarb was 27, blood sugar was 116. ALT is 802 with an AST of 418. As noted above, the CPK-MB was 38.1, increased up to 41.9; and troponin-I on arrival was 0.013, increased all the way up to 1.2 and then decreased back down to 0.9; his CK was 435. His EKG as noted above, on admission, it was sinus tachycardia with decreased R-wave progression in V1 through V3, which could indicate an old septal myocardial infarction. His chest x-ray shows that the tubes in place. I do not see any pneumothorax or hemothorax at this time. IMPRESSION: 1. A 55-year-old gentleman, status post respiratory cardiac arrest, which may be due to a drug overdose or possible asthma attack or respiratory failure, uncertain, but this time it is possible also that he would have some type of arrhythmia, but mainly he was tachycardic perhaps. I do not see indication that he had any significant ventricular arrhythmias. We will obtain an echocardiogram for evaluation of the left ventricular systolic function and further recommendations from a cardiac standpoint will depend on the results of the echocardiogram. 2. Hypertension. He does have some p.r.n. medications for, and he has been given IV hydralazine. May need to add beta-blockers as well as nitrates to lower the blood pressure. Hopefully, the patient will not have any anoxic brain injury since he did require CPR. We will be more than happy to follow the patient with you and again further recommendations will depend on the results of the echocardiogram. Job ID: [id number] [facility]
[2020-07-07] MEDS: Pantoprazole 40 MG VIAL IVP SCH (20:12)
[2020-07-07 20:55] LABS: Anion Gap 15 mmol/L (10-20); BUN (Urea Nitrogen) 29 mg/dL (8.4-25.7); Calc. Creatinine Clearance 108 mL/min (70-130); Calcium 8.6 mg/dL (7.8-10.44); Carbon Dioxide 28 mmol/L (22-29); Chloride 100 mmol/L (98-107); Glucose 135 mg/dL (70-105); Potassium 4.1 mmol/L (3.5-5.1); Sodium 139 mmol/L (136-145)
[2020-07-08] MEDS: methylPREDNISolone Sod Succ 40 MG VIAL IVP SCH ×3 (00:09→20:36)
[2020-07-08] MEDS: Acetaminophen 650 MG Suppository PR PRN ×2 (00:22→11:22)
[2020-07-08] MEDS: hydrALAZINE 20 MG/ML VIAL SLOW IVP PRN (01:38)
[2020-07-08 05:48] LABS: Anion Gap 14 mmol/L (10-20); BUN (Urea Nitrogen) 33 mg/dL (8.4-25.7); Calc. Creatinine Clearance 119 mL/min (70-130); Calcium 8.7 mg/dL (7.8-10.44); Carbon Dioxide 27 mmol/L (22-29); Chloride 101 mmol/L (98-107); Glucose 119 mg/dL (70-105); Potassium 3.9 mmol/L (3.5-5.1); Sodium 138 mmol/L (136-145)
--- NOTE | 2020-07-08 05:52 | PRG ---
DATE OF SERVICE: 07/07/2020 SUBJECTIVE: Dalton Wolf is a 55-year-old gentleman, prolonged CPR, cardiopulmonary arrest. Bilateral chest tubes in place, history of asthma OBJECTIVE: VITAL SIGNS: This morning, his pulse is 97, blood pressure 130/80, sats are 98%, respiratory rate is 25. His I's and O's have been consistently good. CHEST: No wheezing. No crackles. CARDIAC: Normal S1, S2. No gallops. ABDOMEN: No masses. LABORATORY DATA: White count is 26,000. PO2 is 98, pCO2 is 41.3, pH is 7.42. Lytes unremarkable. AST, ALT elevated at 418 and 802 respectively. ASSESSMENT: Respiratory failure, asthma, substance abuse. PLAN: Stop the cooling. Continue empiric antibiotics, supportive care. Hold sedation. We will wean vent as tolerated. Avoid paralytics. TIME SPENT: One-half hour of critical care time. Job ID: [id number]
[2020-07-08 06:01] LABS: Hemoglobin 13.8 g/dL (14.0-18.0); Mean Corpuscular HGB CONC 32.8 g/dL (32.0-36.0); Mean Corpuscular Hemoglobin 31.5 pg (27.0-31.0); Mean Corpuscular Volume 95.9 fL (78.0-98.0); Mean Platelet Volume 8.5 fL (7.4-10.4); Platelet Count 320 thou/uL (130-400); RBC Distribution Width 12.3 % (11.5-14.5); White Blood Cell (WBC) Count 32.8 thou/uL (4.8-10.8)
[2020-07-08 06:10] LABS: Band 6 % (5-11); Lymphocytes 5 % (21-51); MDiff Complete? YES; Monocytes 3 % (0-10); Neutrophil 86 % (42-75)
--- NOTE | 2020-07-08 06:48 | PDOC.FM ---
- Subjective Subjective: Pt has GCS of 3. Chest tube on left has had a 50 output and 0 output. - Objective MAR Reviewed: Yes Vital Signs & Weight: Vital Signs (12 hours) Temp Pulse Resp BP Pulse Ox 07/08/20 06:00 11 L 07/08/20 04:00 12 07/08/20 02:17 139 H 07/08/20 02:16 139 H 15 98 07/08/20 02:00 15 07/08/20 01:38 136 H 184/114 H 07/08/20 00:22 99.0 F 136 H 07/08/20 00:00 14 07/07/20 22:51 126 H 16 99 07/07/20 22:49 124 H 07/07/20 22:00 17 07/07/20 20:00 17 99 07/07/20 19:00 100.6 F H 07/07/20 18:59 144 H 17 97 07/07/20 18:57 146 H Weight Admit Weight 82.554 kg Weight 82.6 kg Most Recent Monitor Data Heart Rate from ECG 118 NIBP 174/101 NIBP BP-Mean 125 Respiration from ECG 25 SpO2 98 I&O: 07/06/20 07/07/20 07/08/20 06:59 06:59 06:59 Intake Total 2432 3245.8 Output Total 1650 4827 2170 Balance -1650 -2395 1075.8 Result Diagrams: 07/08/20 03:45 07/08/20 03:45 Phys Exam - Physical Examination Non responsive HEENT: moist MMs, sclera anicteric Neck: supple Respiratory: clear to auscultation bilateral tachycardiac Gastrointestinal: soft, non-tender Musculoskeletal: no edema, pulses present Non-responsive to painful stimuli Skin: no rash Dx/Plan (1) Acute respiratory failure with hypoxia Code(s): J96.01 - ACUTE RESPIRATORY FAILURE WITH HYPOXIA Status: Acute (2) Asthma Code(s): J45.909 - UNSPECIFIED ASTHMA, UNCOMPLICATED Status: Acute (3) HENRIQUE (acute kidney injury) Code(s): N17.9 - ACUTE KIDNEY FAILURE, UNSPECIFIED Status: Acute (4) Lactic acidosis Code(s): E87.2 - ACIDOSIS Status: Acute (5) Substance abuse Code(s): F19.10 - OTHER PSYCHOACTIVE SUBSTANCE ABUSE, UNCOMPLICATED Status: Acute - Plan Plan: Pt is a 55 yo M with no significant pmh who presents post ROSC. 1. Acute Hypoxic Respiratory Failure 2/2 Asthma Exacerbation vs. Meth Overdose -s/p CPR for total of 25 mins, 5 doses of epi and 1 of bicarb * Presumed PNA, will treat with Ceftriaxone empirically -Sedated and intubated, SIMV @ 35% FIO2 -ABG showed pH 7.04, pCO2 79 > pH 7.39, pCO2 46.5 -Trop 0.013 > 0.644 > 0.9 > 1.227 > 0.907, CK 435 -Asthma exacerbation * txt with steroids and nebs -Pt was removed off cooling protocol; however he was fevering without response to Tylenol, so cooling blanket was placed -daily CXRs -CT chest: Bilaterl pneuom s/p chest tube, UL contusions -Pulmonary consulted, Dr. Chou, 07/06, appreciate recs. -neg COVID and flu 2. HENRIQUE, Resolved -Cr 1.66 > 0.83 -LR 125ml/HR 3. Lactic acidosis, Resolved -pH 7.04, CO2 79 > pH: 7.4, CO2: 41.3 -s/p 1 dose bicarb -LA 13.3 > 3 4. Polysubstance abuse -UDS positive for meth and amphetamines 5. Elevated Troponin Trop: 0.013 > 0.6 > 0.9 > 1.227 > 0.9 -Status post ROSC initially PEA, ST on arrival after 5 rounds of epi -Cardiology consulted -ECHO EF 75, Mild LVH, Trace TR 6. Concern for Brain GCS: 3 -Transplant Service contacted -Consider Nuc Med Brain Scan CODE: FULL VTE: Lovenox PCP: CC : Carmen Dispo: ICU inpt, Will discuss with Pulm if we should scan for brain today. Addendum - Attending - Attending Attestation Date/Time: 07/08/20 8295 I personally evaluated the patient and discussed the management with Dr. Lorenzo. I agree with the History, Examination, Assessment and Plan documented above with any addition or exceptions noted below. Critical but stable. There is concern with his current neurologic function that he may have suffered severe anoxic injury. Continue Pulm and Cardiac support at this time. Suspect if he make no change that we may be headed for confirmation of brain in the next few days.
[2020-07-08 06:58] LABS: Actual Bicarbonate (HCO3a) 27.6 mEq/L (22-28); Base Excess (BEa) 2.1 mEq/L (-2.0 to +3.0); CO2 Tension 46.5 mmHg (35.0-45.0); Calcium, Ionized (arterial) 1.14 mmol/L (1.12-1.30); Carboxyhemoglobin (COHb) 0.4 gm% (0.0-3.0); Hemoglobin (Hb) 14.4 g/dL (14.0-18.0); O2 Tension (PaO2), arterial 134.1 mmHg (80.0-100.0); Potassium - ABG Lab 3.97 mmol/L (3.70-5.30); pH, Arterial 7.39 (7.35-7.45)
[2020-07-08 07:02] LABS: ALV-art Gradient 57.325 mmHg (0-20); Puncture Site LRA
[2020-07-08] MEDS: Lactated Ringer's 1,000 ML IV SCH ×3 (07:05→20:42)
[2020-07-08] MEDS: Budesonide 0.5 MG/2 ML NEB NEB SCH ×2 (07:07→18:52)
--- NOTE | 2020-07-08 08:11 | RAD ---
Chest AP view INDICATION: History of intubation COMPARISON: Prior exam dated June 29, 2020 FINDINGS: Lungs: The lungs are clear Cardiac silhouette: The cardiomediastinal silhouette appears within normal limits. Pulmonary vasculature: Normal Pleural spaces: Bilateral thoracostomy tubes are unchanged. No pneumothorax is evident. Upper abdomen: Gastric catheter is unchanged. Osseous structures: No acute osseous abnormality. Additional findings: Subcutaneous emphysema overlying the right chest wall is stable. ET tube and le ft subclavian central venous catheter are stable. IMPRESSION: Stable exam.
[2020-07-08] MEDS: Enoxaparin Sodium 40 MG/0.4 ML SYRINGE SC SCH (08:39)
[2020-07-08] MEDS: cefTRIAXone\\ROCEPHIN 1 GM in Sodium Chloride 0.9% 100 ML IVPB SCH (08:39)
[2020-07-08] MEDS ORDERED: Lactated Ringer's 1,000 ML IV SCH (09:03)
--- NOTE | 2020-07-08 09:35 | PRG ---
DATE OF SERVICE: 07/08/2020 SUBJECTIVE: A 55-year-old gentleman, off sedation for 24 hours. Still unresponsive. OBJECTIVE: VITAL SIGNS: Pulse 134, blood pressure 140/80. Sats are 96% on 35%, PEEP of 5, respiratory rate of 19. His I's and O's have been even. His temperature has been elevated from time to time 100.6. CHEST: No wheezing. CARDIAC: Normal S1, S2. ABDOMEN: No masses. LABORATORY DATA: White count 32,000. PO2 is 134, pCO2 of , PEEP of 5. His lytes are normal. BUN is 33. X-ray shows bilateral chest tubes without any infiltrates. IMPRESSION: 1. Status post cardiopulmonary arrest, probably anoxic injury, asthma. 2. Substance abuse. PLAN: At this stage, I am not so sure his neurological status. He possibly sustained severe anoxic injury. Probably obtain EEG in the next 24 to 48 hours. His leukocytosis, probably stress related. I do not see any obvious sign of infection. He is on empiric broad-spectrum antibiotics. Otherwise, continue all supportive care. His IV needs to probably be switched over to D5 half-normal saline and we probably start nutrition at a low rate today. Overall, prognosis remains guarded. TIME SPENT: One-half hour of critical care time. Job ID: [id number]
[2020-07-08] MEDS ORDERED: EPINEPHrine 1 MG/10 ML Abboject SYRINGE ONE (13:53)
[2020-07-08] MEDS ORDERED: Norepinephrine 8 MG/0.9% NS 250 ML ONE (13:54)
[2020-07-08] MEDS: Lorazepam 2 MG/ML VIAL SLOW IVP PRN (14:11)
[2020-07-08] MEDS ORDERED: levETIRAcetam in NS 1,000 MG in Premix Bag 1 BAG IVPB SCH (14:30)
[2020-07-08] MEDS ORDERED: Levothyroxine Sodium 400 MCG in Sodium Chloride 0.9% 100 ML IVPB SCH (14:45)
[2020-07-08] MEDS ORDERED: Levothyroxine 100 MCG SDV SLOW IVP SCH (14:45)
[2020-07-08 14:46] VITALS: BMI 23.6
[2020-07-08] MEDS ORDERED: Norepinephrine 8 MG/0.9% NS 250 ML IVPB PRN (15:03)
[2020-07-08 15:04] VITALS: TEMP 100.4
[2020-07-08] MEDS ORDERED: Sodium Chloride 0.9% 500 ML IVPB SCH (16:00)
[2020-07-08] MEDS: Norepinephrine 8 MG/250 ML IVPB SCH (19:21)
[2020-07-08] MEDS: Pantoprazole 40 MG VIAL IVP SCH (20:36)
[2020-07-08 22:51] VITALS: BP 108/59
[2020-07-09] MEDS: Norepinephrine 8 MG/250 ML IVPB SCH ×3 (01:03→14:21)
[2020-07-09] MEDS: Lactated Ringer's 1,000 ML IV SCH (04:30)
[2020-07-09 05:21] LABS: Anion Gap 10 mmol/L (10-20); BUN (Urea Nitrogen) 24 mg/dL (8.4-25.7); Calc. Creatinine Clearance 119 mL/min (70-130); Carbon Dioxide 31 mmol/L (22-29); Chloride 122 mmol/L (98-107); Glucose 142 mg/dL (70-105); Sodium 158 mmol/L (136-145)
--- NOTE | 2020-07-09 05:55 | PDOC.FM ---
- Subjective Subjective: Pt had drop in blood pressure yesterday and Levophed was started. Pt was made DNR after by family. They would like continuation of Levophed, but no more intervention. Pt has had increased in urine output overnight. No longer having agonal breathing and off all sedation. - Objective MAR Reviewed: Yes Vital Signs & Weight: Vital Signs (12 hours) Pulse Resp BP Pulse Ox 07/09/20 04:00 11 L 07/09/20 03:35 110 H 07/09/20 02:00 10 L 07/09/20 00:00 10 L 07/08/20 22:51 111 H 108/59 L 07/08/20 22:49 95 07/08/20 22:00 10 L 07/08/20 20:00 10 L 95 07/08/20 18:52 116 H 07/08/20 18:51 96 07/08/20 18:00 10 L Weight Admit Weight 82.554 kg Weight 82 kg Most Recent Monitor Data Heart Rate from ECG 113 NIBP 102/63 NIBP BP-Mean 76 Respiration from ECG 10 SpO2 92 I&O: 07/07/20 07/08/20 07/09/20 06:59 06:59 06:59 Intake Total 2432 3245.8 4313 Output Total 4827 2170 4650 Balance -2395 1075.8 -337 Result Diagrams: 07/09/20 03:56 07/09/20 03:56 Phys Exam - Physical Examination Constitutional: NAD HEENT: moist MMs, sclera anicteric Neck: supple Respiratory: clear to auscultation bilateral Cardiovascular: RRR Gastrointestinal: soft decreased bowel sounds Musculoskeletal: pulses present GCS: 3 Lymphatic: no nodes Deviation from normal: unable to assess Skin: no rash Dx/Plan (1) Acute respiratory failure with hypoxia Code(s): J96.01 - ACUTE RESPIRATORY FAILURE WITH HYPOXIA Status: Acute (2) Asthma Code(s): J45.909 - UNSPECIFIED ASTHMA, UNCOMPLICATED Status: Acute (3) HENRIQUE (acute kidney injury) Code(s): N17.9 - ACUTE KIDNEY FAILURE, UNSPECIFIED Status: Acute (4) Lactic acidosis Code(s): E87.2 - ACIDOSIS Status: Acute (5) Substance abuse Code(s): F19.10 - OTHER PSYCHOACTIVE SUBSTANCE ABUSE, UNCOMPLICATED Status: Acute - Plan Plan: Pt is a 55 yo M with no significant pmh who presents post ROSC. 1. Acute Hypoxic Respiratory Failure 2/2 Asthma Exacerbation vs. Meth Overdose -s/p CPR for total of 25 mins, 5 doses of epi and 1 of bicarb * Presumed PNA, will treat with Ceftriaxone empirically -Sedated and intubated, SIMV @ 35% FIO2 -ABG showed pH 7.04, pCO2 79 > pH 7.39, pCO2 46.5 -Trop 0.013 > 0.644 > 0.9 > 1.227 > 0.907, CK 435 -Asthma exacerbation * txt with steroids and nebs -Pt was removed off cooling protocol; however he was fevering without response to Tylenol, so cooling blanket was placed -daily CXRs -CT chest: Bilaterl pneuom s/p chest tube, UL contusions -Pulmonary consulted, Dr. Chou, 07/06, appreciate recs. -neg COVID and flu 2. HENRIQUE, Resolved -Cr 1.66 > 0.4 3. Lactic acidosis, Resolved -pH 7.04, CO2 79 > pH: 7.4, CO2: 41.3 -s/p 1 dose bicarb -LA 13.3 > 3 4. Polysubstance abuse -UDS positive for meth and amphetamines 5. Elevated Troponin Trop: 0.013 > 0.6 > 0.9 > 1.227 > 0.9 -Status post ROSC initially PEA, ST on arrival after 5 rounds of epi -Cardiology consulted -ECHO EF 75, Mild LVH, Trace TR 6. Concern for Brain GCS: 3 -Transplant Service contacted, family dose not want organ donation -Will get EEG on Saturday 7. Hypernatremia, Concern for Central DI Na: 158, U Osm:124 -LR Stopped -D5 1/2 NS @ 125 -Vasopressin started CODE: FULL VTE: Lovenox PCP: CC : Carmen Dispo: ICU inpt, Given Vasopressin and D5 1/2 NS. Will recheck labs this am. Addendum - Attending - Attending Attestation Date/Time: 07/09/20 6865 I personally evaluated the patient and discussed the management with Dr. Lorenzo. I agree with the History, Examination, Assessment and Plan documented above with any addition or exceptions noted below. Patient here with cardiac arrest s/p ROSC. Concern for anoxic brain injury, possible catastrophic. Suspect neurogenic shock and fevers. Continues on abx, cultures negative. Hypotension improved with Levophed. He has developed profound hypernatremia and increased UOP, suspect central mediated DI. Increasing free water but also adding Vasopressin to help mitigate. Poor prognosis, patient made DNAR by family yesterday.
[2020-07-09] MEDS: Dextrose 5 %-0.45 % NaCl 1,000 ML IV SCH ×2 (06:32→12:54)
[2020-07-09 06:37] LABS: #Lymphocytes 0.5 thou/uL (1.20-3.40); #Monocytes 0.7 thou/uL (0.11-0.59); #Neutrophils 18.8 thou/uL (1.40-6.50); %Eosinophils 0.1 % (0.0-10.0); %Lymphocytes 2.7 % (21.0-51.0); %Monocytes 3.4 % (0.0-10.0); %Neutrophils 93.8 % (42.0-75.0); Hemoglobin 12.1 g/dL (14.0-18.0); Mean Corpuscular HGB CONC 31.8 g/dL (32.0-36.0); Mean Corpuscular Hemoglobin 31.5 pg (27.0-31.0); Mean Corpuscular Volume 98.9 fL (78.0-98.0); Platelet Count 298 thou/uL (130-400); RBC Distribution Width 12.7 % (11.5-14.5); Red Blood Cell (RBC) Count 3.83 mill/uL (4.70-6.10)
[2020-07-09] MEDS: Budesonide 0.5 MG/2 ML NEB NEB SCH (07:43)
[2020-07-09] MEDS: cefTRIAXone\\ROCEPHIN 1 GM in Sodium Chloride 0.9% 100 ML IVPB SCH (08:18)
[2020-07-09] MEDS: methylPREDNISolone Sod Succ 40 MG VIAL IVP SCH (08:24)
[2020-07-09] MEDS: Enoxaparin Sodium 40 MG/0.4 ML SYRINGE SC SCH (08:24)
[2020-07-09] MEDS ORDERED: levETIRAcetam in NS 500 MG in Premix Bag 1 BAG IVPB SCH (09:00)
[2020-07-09 13:33] LABS: Actual Bicarbonate (HCO3a) 32.4 mEq/L (22-28); Base Excess (BEa) 3.2 mEq/L (-2.0 to +3.0); Calcium, Ionized (arterial) 1.26 mmol/L (1.12-1.30); Carboxyhemoglobin (COHb) 0.2 gm% (0.0-3.0); Hemoglobin (Hb) 12.4 g/dL (14.0-18.0); O2 Tension (PaO2), arterial 85.3 mmHg (80.0-100.0); Potassium - ABG Lab 4.29 mmol/L (3.70-5.30)
[2020-07-09 13:34] LABS: Sodium 164 mmol/L (136-145)
[2020-07-09 13:39] LABS: CO2 Tension 74.8 mmHg (35.0-45.0); Puncture Site RRA; pH, Arterial 7.25 (7.35-7.45)
--- NOTE | 2020-07-09 13:50 | PRG ---
DATE OF SERVICE: 07/09/2020 SUBJECTIVE: Mr. Wolf herniated last night, began having excessive urine output. He has had no brainstem activity since that point. OBJECTIVE: VITAL SIGNS: Temperature 97.2, pulse 115, blood pressure 109/68, O2 saturation 95%. HEENT: Pupils are 5 mm fixed. No oculocephalic reflex. No gag reflex. No spontaneous respirations, no withdrawal to pain. LUNGS: Coarse breath sounds. CARDIAC: S1, S2. Tachycardic. ABDOMEN: Soft. EXTREMITIES: No edema. DIAGNOSTIC STUDIES: His chest x-ray shows ET tube in good position, perhaps slightly high; lung ortiz hyperinflated, but clear. LABORATORY DATA: White blood cell count 20, hematocrit 37.9, and platelet count 298. Sodium 158, potassium 5, chloride 122, CO2 31, BUN 24, creatinine 0.8, glucose 142. Of note, the patient did receive some DDAVP and his urine output has slowed down. ASSESSMENT: 1. This patient is clinically brain by exam. We will do confirmatory testing with an apnea test. 2. Status post cardiopulmonary arrest secondary to asthma. 3. Substance abuse. PLAN: Apnea test to confirm brain . I did confirm the patient has received no paralytic medication, and no pain medication. Further disposition to follow. Job ID: [id number]
[2020-07-09 14:11] LABS: Actual Bicarbonate (HCO3a) 32.2 mEq/L (22-28); Base Excess (BEa) 6.6 mEq/L (-2.0 to +3.0); CO2 Tension 50.4 mmHg (35.0-45.0); Calcium, Ionized (arterial) 1.23 mmol/L (1.12-1.30); Carboxyhemoglobin (COHb) 0.4 gm% (0.0-3.0); Hemoglobin (Hb) 12.3 g/dL (14.0-18.0); O2 Tension (PaO2), arterial 68.1 mmHg (80.0-100.0); Potassium - ABG Lab 4.26 mmol/L (3.70-5.30); pH, Arterial 7.42 (7.35-7.45)
[2020-07-09 14:22] LABS: Puncture Site RRA
[2020-07-09 14:37] LABS: Actual Bicarbonate (HCO3a) 27.3 mEq/L (22-28); Base Excess (BEa) 3.9 mEq/L (-2.0 to +3.0); CO2 Tension 37.1 mmHg (35.0-45.0); Calcium, Ionized (arterial) 1.25 mmol/L (1.12-1.30); Carboxyhemoglobin (COHb) 0.1 gm% (0.0-3.0); Hemoglobin (Hb) 12.3 g/dL (14.0-18.0); O2 Tension (PaO2), arterial 209.5 mmHg (80.0-100.0); Potassium - ABG Lab 4.14 mmol/L (3.70-5.30); pH, Arterial 7.49 (7.35-7.45)
[2020-07-09 14:39] LABS: ALV-art Gradient 457.125 mmHg (0-20); Puncture Site RRA
[2020-07-09 14:52] LABS: Actual Bicarbonate (HCO3a) 33.7 mEq/L (22-28); Base Excess (BEa) 4.7 mEq/L (-2.0 to +3.0); Calcium, Ionized (arterial) 1.26 mmol/L (1.12-1.30); Carboxyhemoglobin (COHb) 0.2 gm% (0.0-3.0); Hemoglobin (Hb) 12.6 g/dL (14.0-18.0); O2 Tension (PaO2), arterial 262.1 mmHg (80.0-100.0); Potassium - ABG Lab 3.72 mmol/L (3.70-5.30); pH, Arterial 7.28 (7.35-7.45)
[2020-07-09 14:56] LABS: ALV-art Gradient 358.775 mmHg (0-20); CO2 Tension 73.7 mmHg (35.0-45.0); Puncture Site RRA
--- NOTE | 2020-07-09 16:22 | RAD ---
RADIOGRAPH CHEST 1 VIEW: DATE: 07/09/2020 TIME: 5:53 AM HISTORY: 55-year-old male in respiratory failure on ventilator. COMPARISON: 07/08/2020 FINDINGS: Lung apices are excluded from the [id number]. Bilateral chest tubes are unchanged in position. Cardiomegaly mediastinal silhouette is normal. Endotracheal tube distal tip is in a more superior position, 7 cm superior to the tyler, at the leve l of the clavicular heads. No other interval change. Lungs are essentially clear. Lateral costophrenic angles are bilaterally sharp. Esophagogastric tube remains. Right-sided subcutaneous of right chest wall. IMPRESSION: 1) endotracheal tube retracted with distal tip 7 cm superior to tyler. 2) no other interval change. 3) lungs remain clear. 4) bilateral thoracostomy tubes unchanged
--- NOTE | 2020-07-11 01:27 | DIS ---
DATE OF ADMISSION: 07/06/2020 DATE OF DISCHARGE: 07/09/2020 DATE OF : 07/09/2020. TIME OF : [address] Britton. CAUSE OF : 1. Anoxic brain injury. SECONDARY DIAGNOSES: 1. Acute kidney injury 2. Lactic acidosis 3. Substance abuse 4. Elevated troponin 5. Hypernatremia. HOSPITAL COURSE: The patient was admitted on 07/06/2020. The patient is a 55-year-old male with the only significant past medical history of asthma. The stated that the patient woke her up the morning of admission due to shortness of breath. He had already done 5 albuterol treatments he had at home prior to EMS being called. EMS was called and he was tripodding and became unresponsive. He was intubated in the field and found to be PEA. and CPR was started. He had 5 doses of epi and 1 dose of bicarb prior to arrival in the ER. The patient was found to be in Vfib and was shocked once and came back. Bilateral chest tubes were placed and chest x-ray was obtained. The patient was given Ancef and vanc in the ED and had a lactate of 13.3. The patient was changed over to Rocephin once admitted in the unit. Initially he was hypertensive, but became hypotensive and Levophed was started. He was weaned off the Levophed before leaving the ED. The patient has a history of asthma since 42 years of age and has no known COVID exposures. Once on the unit, the patient was started on Rocephin. Lactates were trended and went back down to normal. White blood cell count increased, but likely due to PE, chest compressions. The patient was on a 24-hour cooling period after ROSC and after that sedation was turned off. He initially had agonal breathing, but this stopped. On 07/07 the patient had elevated troponins, likely due to CPR, but Cardiology was consulted. Cardiology stated there was nothing to do at this time. Chest tubes were placed for pneumothorax in the ED. Echo was obtained which showed an EF of 75%. The patient's HENRIQUE resolved. Prior to the he became hypernatremic on 07/09. This was thought to be due to brain . GCS was 3. Sodium was initially 158, D5 half-normal saline was started and vasopressin was given. Sodium continued to trend up to 164. Fluids were changed. The patient had positive UDS for methamphetamines and this was discussed with family. Dr. Britton did apnea testing declared at time of at 1503 hours on 07/09/2020. Job ID: [id number] [facility]
--- NOTE | 2020-07-13 13:01 | PQF ---
CLINICAL DOCUMENTATION CLARIFICATION FORM: Dear : LESIA CHEN MD Date / Time: 07/13/2020 Please exercise your independent, professional judgment in responding to the clarification form. Clinical indicators are provided on the bottom of this form for your review Please check appropriate box(es): [ ] Cardiac arrest due to respiratory failure [ ] Cardiac arrest due to ventricular fibrillation [ ] Cardiac arrest due to overdose [ ] Cardiac arrest due to asthma exacerbation [ X ] Other diagnosis _cardiac arrest suspected secondary to methamphetamine abuse (Please specify if any) [ ] Unable to determine Physician Signature: Date/Time: For continuity of documentation, please document condition throughout progress notes and discharge summary. Thank You. To be completed by CDI/Coding staff for physician review: Present Clinical Indicators - Signs / Symptoms / Labs Results and Location in Medical Record [x] Respiratory arrest, cardiac arrest ED provider report on 07/06 [x] Patient presents in cardiac arrest, likely secondary to respiratory distress ED provider report on 07/06 [x] cardiac arrest of unknown etiology though suspect lung versus drug abuse given UDS results Family medicine progress notes on 07/07 [x] S/p cardiac arrest, which may be due to a drug overdose or possible asthma attack or respiratory failure Consult on 07/07 [x] Acute hypoxic respiratory failure 2/2 asthma exacerbation vs Meth.overdose Family medicine progress notes on 07/08 [x] S/p cardiac arrest secondary to asthma Progress notes on 07/09 Present Risk Factors Results and Location in Medical Record [x] Polysubstance abuse Family medicine progress notes on 07/07 [x] PMH: asthma H&P on 07/06 Present Treatments Results and Location in Medical Record [x] S/p CPR for 25 mins Family medicine progress notes on 07/08 [x] Sedated, intubated Family medicine progress notes on 07/08 [x] Levophed 250ml IV Medication on 07/08,07/09 [x] Shocked once and came back Discharge summary on 07/11 [x] Albuterol 2.5mg Medication on 07/06 CDS/Extension Forester Signature:AAS Phone #: Date/Time: 07/13/2020 This is a permanent part of the Medical Record [facility]
--- NOTE | 2020-07-16 21:16 | EKG ---
Test Reason : CPR Blood Pressure : / mmHG Vent. Rate : 132 BPM Atrial Rate : 132 BPM P-R Int : 156 ms QRS Dur : 092 ms QT Int : 296 ms P-R-T Axes : 087 106 071 degrees QTc Int : 438 ms Sinus tachycardia with Fusion complexes Possible Left atrial enlargement Rightward axis Pulmonary disease pattern Septal infarct , age undetermined Abnormal ECG Confirmed by MING ZARAGOZA ([id number]), editorial cartoonist JUANITA CONTEH ([id number]) on 07/16/2020 9:15:59 PM Referred By: Confirmed By:MING ZARAGOZA
--- NOTE | 2020-07-22 00:58 | PQF ---
CLINICAL DOCUMENTATION CLARIFICATION FORM: Dear : LESIA CHEN MD Date / Time: 07/22/2020 Please exercise your independent, professional judgment in responding to the clarification form. Clinical indicators are provided on the bottom of this form for your review Please check appropriate box(es): to clarify the methamphetamine was abuse or overdose [ ] Methamphetamine abuse [ ] Methamphetamine overdose [ ] Other diagnosis (Please specify if any) [ ] Unable to determine Physician Signature: Date/Time: For continuity of documentation, please document condition throughout progress notes and discharge summary. Thank You. To be completed by CDI/Coding staff for physician review: Present Clinical Indicators - Signs / Symptoms / Labs Results and Location in Medical Record [x] Cardiac arrest suspected to methamphetamine abuse Query response [x] S/p cardiac arrest, which may be due to a drug overdose or possible asthma attack or respiratory failure Consult on 07/07 [x] Acute hypoxic respiratory failure 2/2 asthma exacerbation vs meth. overdose Family medicine progress notes on 07/08 [x] Amphetamine & methamphetamine screen - detected Toxicology lab on 07/06 Present Risk Factors Results and Location in Medical Record [x] Polysubstance abuse Family medicine progress notes on 07/07 [ ] Present Treatments Results and Location in Medical Record [x] Sedated, intubated Family medicine progress notes on 07/08 [x] Shocked once and came back Discharge summary on 07/11 [ ] [ ] CDS/Yield Engineer Signature:AAS Phone #: Date/Time: 07/22/2020 This is a permanent part of the Medical Record [facility]
== END 2020-07-09 15:03 | disposition expired | DRG 208 ==
LOC: ERS 03:36 → CCU 04:53
PROVIDERS: ADMIT Family Medicine; ATTEND Family Medicine
PROC: 05H633Z Insertion of Infusion Device into Left Subclavian Vein, Percutaneous Approach (ICD-10-PCS; principal; 2020-07-06)
PROC: 5A1945Z Respiratory Ventilation, 24-96 Consecutive Hours (ICD-10-PCS; 2020-07-06)
PROC: 0W9B30Z Drainage of Left Pleural Cavity with Drainage Device, Percutaneous Approach (ICD-10-PCS; 2020-07-06)
PROC: 0W9930Z Drainage of Right Pleural Cavity with Drainage Device, Percutaneous Approach (ICD-10-PCS; 2020-07-06)
PROC: 0D9670Z Drainage of Stomach with Drainage Device, Via Natural or Artificial Opening (ICD-10-PCS; 2020-07-06)
PROC: 5A12012 Performance of Cardiac Output, Single, Manual (ICD-10-PCS; 2020-07-06)
PROC: 0BH17EZ Insertion of Endotracheal Airway into Trachea, Via Natural or Artificial Opening (ICD-10-PCS; 2020-07-06)
PROC: 3E033XZ Introduction of Vasopressor into Peripheral Vein, Percutaneous Approach (ICD-10-PCS; 2020-07-08)
DX: J96.01 Acute respiratory failure with hypoxia (principal); J45.901 Unspecified asthma with (acute) exacerbation; N17.9 Acute kidney failure, unspecified; E87.2 Acidosis; E87.0 Hyperosmolality and hypernatremia; G93.1 Anoxic brain damage, not elsewhere classified; J93.9 Pneumothorax, unspecified; I47.2 Ventricular tachycardia; I49.01 Ventricular fibrillation; R09.2 Respiratory arrest; I46.9 Cardiac arrest, cause unspecified; F15.10 Other stimulant abuse, uncomplicated; Z78.1 Physical restraint status; Z79.51 Long term (current) use of inhaled steroids; Z79.899 Other long term (current) drug therapy; R77.8 Other specified abnormalities of plasma proteins; Z20.822 Contact with and (suspected) exposure to COVID-19; Z66 Do not resuscitate
CPT/HCPCS: 0240U; 32551; 36556; 36600; 51702; 71045; 71275; 80048; 80053; 80306; 80307; 81002; 81003; 81015; 82550; 82553; 82805; 83605; 83735; 83930; 83935; 84100; 84145; 84300; 84484; 85025; 85610; 85730; 87040; 92950; 93005; 93010; 93306; 94002; 94003; 94640; 96365; 96366; 96367; 96368; 96375; C9113; J0360; J0690; J0696; J1650; J1953; J2060; J2250; J2270; J2597; J2704; J2920; J2930; J3010; J3370; J3475; J3480; J3490; J7030; J7611; J7620; J7626; Q9967